=== PATIENT | male | born 1990 | race Caucasian/White ===

== ENCOUNTER 2023-05-06 00:34 | Emergency (ER) | payer OTHER, SELFPAY ==
[2023-05-06 00:58] LABS: #Basophils 0.1 thou/uL (0.0-0.2); #Eosinphils 0.2 thou/uL (0.0-0.7); #Monocytes 0.8 thou/uL (0.11-0.59); #Neutrophils 4.7 thou/uL (1.40-6.50); %Basophils 0.5 % (0.0-1.0); %Eosinophils 1.8 % (0.0-10.0); %Lymphocytes 37.1 % (21.0-51.0); %Monocytes 9.1 % (0.0-10.0); %Neutrophils 51.3 % (42.0-75.0); Hemoglobin 16.3 g/dL (14.0-18.0); Mean Corpuscular HGB CONC 33.3 g/dL (32.0-36.0); Mean Corpuscular Hemoglobin 30.6 pg (27.0-31.0); Mean Corpuscular Volume 91.9 fl (78.0-98.0); Mean Platelet Volume 9.1 fL (7.4-10.4); Platelet Count 280 10x3/uL (130-400); Red Blood Cell (RBC) Count 5.33 mill/uL (4.70-6.10); White Blood Cell (WBC) Count 9.1 10x3/uL (4.8-10.8)
[2023-05-06 01:22] LABS: ALT (SGPT) 18 U/L (8-55); AST (SGOT) 21 U/L (5-34); Albumin 4.2 g/dL (3.5-5.0); Alkaline Phosphatase 88 U/L (40-110); Anion Gap 13 mmol/L (10-20); BUN (Urea Nitrogen) 17 mg/dL (8.9-20.6); Calc. Creatinine Clearance 0 mL/min (70-130); Calcium 9.4 mg/dL (7.8-10.44); Carbon Dioxide 25 mmol/L (22-29); Chloride 104 mmol/L (98-107); Estimated GFR 92; Globulin 3.1 g/dL (2.4-3.5); Glucose 102 mg/dL (70-105); Potassium 3.7 mmol/L (3.5-5.1); Protein, Total 7.3 g/dL (6.0-8.3); Sodium 138 mmol/L (136-145)
[2023-05-06 01:30] LABS: Troponin I Less than 0.010 ng/mL (< 0.028)
[2023-05-06] MEDS ORDERED: Ketorolac Tromethamine 30 MG (1 mL) VIAL ONE (02:52)
[2023-05-06 03:01] LABS: Lipase 44 U/L (8-78)
== END 2023-05-06 03:40 | disposition home or self-care (01) ==
LOC: ERS 00:34
DX: R07.81 Pleurodynia (principal); R07.2 Precordial pain
CPT/HCPCS: 36415; 71045; 80053; 83690; 84484; 85025; 85379; 93005; 96372; J1885

== ENCOUNTER 2024-01-17 18:06 | Observation (INO) | payer OTHER, SELFPAY ==
[2024-01-17] MEDS ORDERED: Ondansetron PF 4 MG/2 ML Vial IVP PRN (18:41)
[2024-01-17] MEDS ORDERED: diphenhydrAMINE 25 MG CAP PO PRN (18:41)
[2024-01-17] MEDS ORDERED: Morphine 2 MG/ML VIAL SLOW IVP PRN (18:41)
[2024-01-17] MEDS ORDERED: HYDROcodone/Acetaminophen 5/325 mg Tablet PO PRN (18:41)
[2024-01-17] MEDS: Sodium Chloride 0.9% 1,000 ML IV SCH (19:44)
[2024-01-18] MEDS ORDERED: cefTRIAXone\\ROCEPHIN 1 GM in Sodium Chloride 0.9% 100 ML IVPB SCH (00:01)
[2024-01-18] MEDS: HYDROcodone/Acetaminophen 5/325 mg Tablet PO PRN (03:40)
[2024-01-18] MEDS ORDERED: Midazolam HCl 2 mg/2 ml Vial ONE (07:54)
[2024-01-18] MEDS ORDERED: Ketamine In 0.9 % NaCl 50 MG/5 ML SYRINGE ONE (08:06)
[2024-01-18] MEDS ORDERED: fentaNYL PF 100 MCG/2 ML SYRINGE ONE (08:06)
[2024-01-18] MEDS ORDERED: PROPOFOL 20 ML ONE (08:06)
[2024-01-18] MEDS ORDERED: cefTRIAXone (ROCEPHIN) 1 GM VIAL ONE (08:10)
[2024-01-18] MEDS ORDERED: Sodium Chloride 0.9% 100 ML ONE (08:10)
[2024-01-18] MEDS ORDERED: Glycopyrrolate 0.2 MG/ML 5 ML SYRINGE ONE (08:18)
[2024-01-18] MEDS ORDERED: Dexamethasone 20 MG/5 ML VIAL ONE (08:18)
[2024-01-18] MEDS ORDERED: Ondansetron HCl/PF 4 MG/2 ML Vial IVP PRN (08:55)
[2024-01-18] MEDS ORDERED: Promethazine HCl 25 MG/ML VIAL IM PRN (08:55)
[2024-01-18] MEDS ORDERED: Oxybutynin 5 MG TAB PO PRN (08:59)
[2024-01-18] MEDS: valACYclovir 500 MG TAB PO SCH (09:52)
[2024-01-18] MEDS: Phenazopyridine HCl 100 MG TAB PO SCH (09:52)
[2024-01-18 14:32] VITALS: BP 109/64; TEMP 97.9
== END 2024-01-18 14:32 | disposition home or self-care (01) ==
LOC: SURG A 18:06
PROVIDERS: ADMIT Urology; ATTEND Urology
PROC: 0T768DZ Dilation of Right Ureter with Intraluminal Device, Via Natural or Artificial Opening Endoscopic (ICD-10-PCS; principal; 2024-01-17)
DX: N20.1 Calculus of ureter (principal); K58.9 Irritable bowel syndrome, unspecified; B00.9 Herpesviral infection, unspecified; Z79.899 Other long term (current) drug therapy
CPT/HCPCS: 74420; C2617; G0378; J0696; J1100; J2250; J2704; J3490; J7030

== ENCOUNTER 2024-01-23 09:53 | Day surgery (SDC) | payer SELFPAY ==
[2024-01-22 09:53] VITALS: BMI 21.1
[2024-01-23] MEDS ORDERED: Iopamidol 45 ML ONE (12:48)
[2024-01-23] MEDS ORDERED: LevoFLOXacin D5W 500 mg (100 mL) BAG ONE (13:02)
[2024-01-23] MEDS ORDERED: PROPOFOL 20 ML ONE ×2 (13:08→13:30)
[2024-01-23] MEDS ORDERED: Lidocaine 2% PF 5 ML VIAL ONE (13:09)
[2024-01-23] MEDS ORDERED: fentaNYL PF 100 MCG/2 ML SYRINGE ONE (13:09)
[2024-01-23 13:23] LABS: Acetaminophen Less than 10 mcg/mL (Less than 10); Alcohol Less than 10.0 mg/dL (Less than 10); Salicylate Less than 8.0 mg/dL (Less than 8.0)
[2024-01-23] MEDS ORDERED: Ondansetron PF 4 MG/2 ML Vial ONE (13:26)
[2024-01-23] MEDS ORDERED: Dexamethasone 20 MG/5 ML VIAL ONE (13:26)
[2024-01-23] MEDS ORDERED: Oxybutynin 5 MG TAB ONE (14:20)
[2024-01-23] MEDS ORDERED: Phenazopyridine HCl 100 MG TAB ONE (14:20)
== END 2024-01-23 16:14 | disposition home or self-care (01) ==
LOC: SDC 09:53
PROVIDERS: ATTEND Urology
PROC: 0T768DZ Dilation of Right Ureter with Intraluminal Device, Via Natural or Artificial Opening Endoscopic (ICD-10-PCS; principal; 2024-01-23)
PROC: 0TF68ZZ Fragmentation in Right Ureter, Via Natural or Artificial Opening Endoscopic (ICD-10-PCS; principal; 2024-01-23)
DX: N20.1 Calculus of ureter (principal)
CPT/HCPCS: 80307; 82365; 88300; C1747; C1769; C2617; J1100; J1956; J2001; J2405; J2704; Q9967